=== PATIENT | female | born 1990 | race Hispanic/Latino ===

== ENCOUNTER 2021-06-02 04:23 | Emergency (ER) | payer OTHER ==
--- OUTSIDE RECORDS SUMMARY | 2021-06-02 04:26 | XMS REPORT | Continuity of Care Document ---
:1990 Author Organization [facility] t Address [address] [place] [address] [address]. [address] [place] [address] Care Team Providers Name Role Phone Pcp, Does Not Have A Primary Care Physician Mina TRIPP, T Attending Clinician Unavailable Lamberto GARCIA Attending Clinician Unknown Attending Clinician Unavailable UNKNOWN Attending Clinician Unavailable Payers Payer Name Policy Type Policy Number Effective Date Expiration Date Mejia sevilla [facility] [id number] 2020 00:00:00 CHOICE/CHOICE PLUS Problems Condition Condition Condition Status Onset Resolution Last Treating Co mments Source Name Details Category Date Date Treatment Clinician Date No known No known Disease Unive rs active active ity of problems problems [facility] Allergies, Adverse Reactions, Alerts Allergy Allergy Status Severity Reaction(s) Onset Inactive Treating Comm ents Source Name Type Date Date Clinician NO KNOWN Drug Active [facility] Social [facility] Social Habit Start Date Stop Date Quantity Comments Source Exposure to Not sure [facility] SARS-CoV-2 [facility] (event) [place] Alcohol intake 2020-10-06 2020-10-06 Ex-drinker [facility] 00:00:00 00:00:00 (finding) [facility] Tobacco use and 2020-10-06 2020-10-06 Never used Universit y of exposure 00:00:00 00:00:00 [facility] Sex Ass[birth year] At [birth year] Universit y of 00:00:00 00:00:00 [facility] Smoking Status Start Date Stop Date Source Never smoker [facility] Medications Ordered Filled Start Stop Current Ordering Indication Dosage Frequency Signature Comments Components Source Medication Medication Date Date Medication? Clinician (SIG) Name Name No known No Univers medications ity [facility] No known No [facility] No [facility] No [facility] medications [facility] Vital Signs Vital Name Observation Time Observation Value Comments Source Systolic blood 2020-10-06 18:04:00 120 mm[Hg] Univer sity of [facility] Diastolic blood 2020-10-06 18:04:00 80 mm[Hg] Unive rsity of [facility] Heart rate 2020-10-06 18:04:00 88 /min Universi ty of [facility] Body temperature 2020-10-06 18:04:00 [facility].67 [facility] Respiratory rate 2020-10-06 18:04:00 18 /min [facility] Oxygen saturation in 2020-10-06 18:04:00 98 /min [facility] Arterial blood by [facility] Pulse oximetry [place] Procedures This patient has no known procedures. Encounters Start End Encounter Admission Attending Care Care Encounter Source Date/Time Date/Time Type Type Clinicians Facility Department ID 2021-01-28 Outpatient [facility] [id number] [place] 11:36:50 Health 2020-10-08 2020-10-08 Letter IVIS Enriquez [id number] Univers 00:00:00 00:00:00 (Out) Flakita LYNNE [id number] [facility] [id number] Mohit as [id number] [place] [id number] [place] 2020-10-06 2020-10-06 Urgent Keyona Orantes [facility] [id number] Univers 11:42:02 12:02:02 Care Unknown, [id number] Mohit as Robert?Blea [id number] Dc gavinal [address] [facility] 2020-10-06 2020-10-06 Outpatient R UNKNOWN, [facility] [id number] Univers 11:40:00 11:40:00 ATTENDING [facility] Results This patient has no known results.
[2021-06-02 05:26] LABS: Lymphocytes % 32.2 % (15.3-44.8); MPV 7.9 fL (7.6-11.3); RBC Red Blood Cell Count 4.27 M/uL (3.86-4.86)
[2021-06-02 05:47] LABS: Potassium 3.7 mmol/L (3.5-5.1)
--- NOTE | 2021-06-02 08:22 | ER ---
Nurse's Notes [facility] Name: Bruna Elaine Age: 31 yrs Sex: Female : 1990 Arrival Date: 06/02/2021 Time: 04:30 Bed 4 Private MD: Diagnosis: Chest pain on breathing Presentation: 06/02 05:04 Chief complaint: Patient states: she has been having on and off chest pain since sm5 yesterday morning. Coronavirus screen: Vaccine status: Patient reports receiving the 2nd dose of the covid vaccine. Ebola Screen: No symptoms or risks identified at this time. Initial Sepsis Screen: Does the patient meet any 2 criteria? No. Patient's initial sepsis screen is negative. Does the patient have a suspected source of infection? No. Patient's initial sepsis screen is negative. Risk Assessment: Do you want to hurt yourself or someone else? Patient reports no desire to harm self or others. Onset of symptoms was June 01, 2021. 05:04 Method Of Arrival: Ambulatory [facility] 05:04 Acuity: LAEX 3 5 Triage Assessment: 05:06 General: Appears in no apparent distress. Behavior is cooperative. Pain: Complains of 5 pain in chest Quality of pain is described as sharp. Neuro: No deficits noted. Level of Consciousness is awake, alert, obeys commands, Oriented to person, place, time, situation. Cardiovascular: Reports chest pain, Capillary refill < 3 seconds Patient's skin is warm and dry. Respiratory: No deficits noted. Airway is patent Trachea midline Respiratory effort is even, unlabored. 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 - Social history:: Smoking status: Patient denies any tobacco usage or history of. Patient uses Patient/guardian denies using alcohol, street drugs, The patient lives with spouse. - Family history:: not pertinent. Screenin:06 Abuse screen: Denies threats or abuse. Denies injuries from another. Nutritional sm5 screening: No deficits noted. Tuberculosis screening: No symptoms or risk factors identified. Fall Risk None identified. Assessment: 06:22 Pain: Pain does not radiate. Pain began 4 hours ago. kd3 06:22 General: Appears in no apparent distress. Behavior is calm, cooperative, appropriate kd3 for age. Neuro: Level of Consciousness is awake, alert, obeys commands, Oriented to person, place, time, situation. Cardiovascular: Patient's skin is warm and dry. Respiratory: Airway is patent Respiratory effort is even, unlabored, Respiratory pattern is regular. 07:12 General: Appears in no apparent distress. comfortable, Behavior is calm, cooperative. vg1 Pain: Denies pain. Neuro: Level of Consciousness is awake, alert, obeys commands, Oriented to person, place, time, situation. Cardiovascular: Patient's skin is warm and dry. Respiratory: Airway is patent Respiratory effort is even, unlabored. GI: No signs and/or symptoms were reported involving the gastrointestinal system. : No signs and/or symptoms were reported regarding the genitourinary system. EENT: No signs and/or symptoms were reported regarding the EENT system. Derm: Skin is intact, Skin is pink, warm \T\ dry. Musculoskeletal: Circulation, motion, and sensation intact. 08:20 Reassessment: Patient appears in no apparent distress at this time. No changes from vg1 previously documented assessment. Patient and/or family updated on plan of care and expected duration. Pain level reassessed. Patient is alert, oriented x 3, equal unlabored respirations, skin warm/dry/pink. Vital Signs: 05:04 BP 120 / 76; Pulse 71; Resp 17; Temp 98.8(O); Pulse Ox 99% on R/A; Weight 63.5 kg; sm5 Height 5 ft. 0 in. (152.40 cm); 06:29 BP 111 / 75; Pulse 74; Resp 18; Pulse Ox 96% on R/A; sm5 07:13 BP 98 / 66; Pulse 73; Resp 16; Pulse Ox 98% on R/A; vg1 08:20 BP 101 / 66; Pulse 78; Resp 16; Pulse Ox 98% on R/A; vg1 05:04 Body Mass Index 27.34 (63.50 kg, 152.40 cm) [facility] ED Course: 04:30 Patient arrived in ED. kz 04:59 Antoine Deras MD is Attending Physician. kdr 05:05 Triage completed. sm5 05:06 Arm band placed on right wrist. EKG completed in triage. Results shown to MD. sm5 05:06 Patient has correct armband on for positive identification. Placed in gown. Bed in low sm5 position. Call light in reach. Side rails up X2. 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 Pulse ox on. NIBP on. 05:07 Carole Herbert, RN is Primary Nurse. kd3 05:23 Inserted saline lock: 20 gauge in right antecubital area, using aseptic technique. kd3 Blood collected. 06:00 XRAY Chest (1 view) In Process Unspecified. EDMS 06:23 Patient maintains SpO2 saturation greater than 95% on room air. kd3 07:35 Repeat lab(s) drawn. by me. vg1 08:01 Attending Physician role handed off by Antoine Deras MD ma2 08:01 Jose Vega MD is Attending Physician. ma2 08:41 No provider procedures requiring assistance completed. IV discontinued, intact, ap3 bleeding controlled, No redness/swelling at site. Pressure dressing applied. Administered Medications: No medications were administered Outcome: 08:21 Discharge ordered by . ma2 08:41 Discharged to home ambulatory. ap3 08:41 Condition: good 08:41 Discharge instructions given to patient, Instructed on discharge instructions, follow up and referral plans. medication usage, Demonstrated understanding of instructions, follow-up care, medications, Prescriptions given X 1. 08:41 Patient left the ED. ap3 Signatures: Dispatcher [employer] EDFL Antoine Deras MD MD [facility] Jose Vega MD MD ma2 Prokisch, Amanda RN RN ap3 Salima Perea RN JOSEE [email or web address] Carole Herbert, RN JOSEE kd3 Susan De Los Santos, RN RN Meagan Horn
--- NOTE | 2021-06-02 08:22 | EDPHYS ---
Physician Documentation [facility] Name: Bruna Elaine Age: 31 yrs Sex: Female : 1990 Arrival Date: 06/02/2021 Time: 04:30 Bed 4 Private MD: ED Physician Jose Vega HPI: 06/02 08:19 This 31 yrs old Female presents to ER via Ambulatory with complaints of Chest ma2 Pain. 08:19 Healthy 32-year-old female never had any heart or lung issues neurotomies, presents ma2 with right-sided lateral chest wall pain that is worse when she took the breath or twist to the side, patient states she had similar pain pain in the past has been constant for 2 days, is worse when she touch tender area. 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 - Social history:: Smoking status: Patient denies any tobacco usage or history of. Patient uses Patient/guardian denies using alcohol, street drugs, The patient lives with spouse. - Family history:: not pertinent. ROS: 08:19 Constitutional: Negative for fever, chills, and weight loss. ma2 08:19 All other systems are negative. Exam: 05:37 ECG was reviewed by the Attending Physician. kdr 08:19 Constitutional: This is a well developed, well nourished patient who is awake, alert, ma2 and in no acute distress. Head/Face: Normocephalic, atraumatic. Eyes: Pupils equal round and reactive to light, extra-ocular motions intact. Lids and lashes normal. Conjunctiva and sclera are non-icteric and not injected. Cornea within normal limits. Periorbital areas with no swelling, redness, or edema. ENT: Nares patent. No nasal discharge, no septal abnormalities noted. Tympanic membranes are normal and external auditory canals are clear. Oropharynx with no redness, swelling, or masses, exudates, or evidence of obstruction, uvula midline. Mucous membranes moist. Neck: Trachea midline, no thyromegaly or masses palpated, and no cervical lymphadenopathy. Supple, full range of motion without nuchal rigidity, or vertebral point tenderness. No Meningismus. Chest/axilla: Chest pain reproducible on exam, normal chest wall appearance and motion. Nontender with no deformity. No lesions are appreciated. Cardiovascular: Regular rate and rhythm with a normal S1 and S2. No gallops, murmurs, or rubs. Normal PMI, no JVD. No pulse deficits. Respiratory: Lungs have equal breath sounds bilaterally, clear to auscultation and percussion. No rales, rhonchi or wheezes noted. No increased work of breathing, no retractions or nasal flaring. Abdomen/GI: Soft, non-tender, with normal bowel sounds. No distension or tympany. No guarding or rebound. No evidence of tenderness throughout. Skin: Warm, dry with normal turgor. Normal color with no rashes, no lesions, and no evidence of cellulitis. MS/ Extremity: Pulses equal, no cyanosis. Neurovascular intact. Full, normal range of motion. Neuro: Awake and alert, GCS 15, oriented to person, place, time, and situation. Cranial nerves II-XII grossly intact. Motor strength 5/5 in all extremities. Sensory grossly intact. Cerebellar exam normal. Normal gait. Vital Signs: 05:04 BP 120 / 76; Pulse 71; Resp 17; Temp 98.8(O); Pulse Ox 99% on R/A; Weight 63.5 kg; sm5 Height 5 ft. 0 in. (152.40 cm); 06:29 BP 111 / 75; Pulse 74; Resp 18; Pulse Ox 96% on R/A; sm5 07:13 BP 98 / 66; Pulse 73; Resp 16; Pulse Ox 98% on R/A; vg1 08:20 BP 101 / 66; Pulse 78; Resp 16; Pulse Ox 98% on R/A; vg1 05:04 Body Mass Index 27.34 (63.50 kg, 152.40 cm) [facility] MDM: 08:19 Differential diagnosis: chest wall pain, esophagitis, gastritis, gastroesophageal ma2 reflux disease (GERD). Data reviewed: vital signs, nurses notes, EKG, radiologic studies. Counseling: I had a detailed discussion with the patient and/or guardian regarding: the historical points, exam findings, and any diagnostic results supporting the discharge/admit diagnosis, the presence of at least one elevated blood pressure reading (>120/80) during this emergency department visit, the need for outpatient follow up. ED course: Received signout from Dr. Deras on this patient as last chest pain discharged home after second troponin, all results came back normal symptoms resolved, second troponin came back negative, patient has no symptoms at this time would like to go home. 08:21 Patient medically screened. ma2 06/02 05:00 Order name: Basic Metabolic Panel; Complete Time: 06:22 kdr 06/02 05:00 Order name: CBC with Diff; Complete Time: 05:43 kdr 06/02 05:00 Order name: Troponin HS; Complete Time: 06:22 kdr 06/02 05:00 Order name: XRAY Chest (1 view) kdr 06/02 06:22 Order name: Troponin High Sensitivity: Draw 2 hours after initial draw; Complete Time: kdr 08:06/02 05:00 Order name: Cardiac monitoring; Complete Time: 05:15 kdr 06/02 05:00 Order name: EKG - Nurse/Tech; Complete Time: 05:12 kdr 06/02 05:00 Order name: IV Saline Lock; Complete Time: 05:15 kdr 06/02 05:00 Order name: Labs collected and sent; Complete Time: 05:23 kdr 06/02 05:00 Order name: O2 Per Protocol; Complete Time: 05:12 kdr 06/02 05:00 Order name: O2 Sat Monitoring; Complete Time: 05:12 kdr EC:37 Rate is 73 beats/min. Rhythm is regular, Sinus Rhythm with No ectopy. QRS [place] is kdr Normal. MT interval is normal. QRS interval is normal. QT interval is normal. Clinical impression: NSR w/ Non-specific ST/T Changes. Administered Medications: No medications were administered Disposition Summary: 06/02/21 08:21 Discharge Ordered Location: Home ma2 Condition: Stable ma2 Diagnosis - Chest pain on breathing ma2 Followup: ma2 - With: Private Physician - When: Tomorrow - Reason: If symptoms return, Continuance of care Discharge Instructions: - Discharge Summary Sheet ma2 - Chest Wall Pain ma2 Forms: - Medication Reconciliation Form ma2 - Thank You Letter ma2 - Antibiotic Education ma2 - Prescription Opioid Use ma2 Prescriptions: - Diclofenac Sodium 75 mg Oral Tablet Sustained Release - take 1 tablet by ORAL route 2 times per day; 30 tablet; Refills: 0, Product ma2 Selection Permitted Signatures: Dispatcher [employer] Antoine Pittman MD MD [facility] Jose Vega MD MD ma2 Susan De Los Santos, RN RN sm5 Gale Hoffmann PA PA sb3
[2021-06-02 08:46] VITALS: TEMP 98.8
[2021-06-02 08:49] VITALS: O2SAT 98
[2021-06-02 08:50] VITALS: BP 101/66
--- NOTE | 2021-06-02 18:09 | RAD REPORT ---
EXAM DESCRIPTION: RAD - Chest Single View - 06/02/2021 5:58 am XR Chest, 1 View CLINICAL HISTORY: The patient is 31 years old and is Female; CHEST PAIN TECHNIQUE: Frontal view of the chest. COMPARISON: No relevant prior studies available. FINDINGS: Lungs: Unremarkable. No consolidation. Pleural space: Unremarkable. No pneumothorax. Heart: Unremarkable. Mediastinum: Lucency along the right heart border which likely represents artifact. Bones/joints: Unremarkable. IMPRESSION: No acute findings in the chest. Electronically signed by: Bryant Leigh MD 06/02/2021 6:21 AM CDT Due to temporary technical issues with the PACS/Fluency reporting system, reports are being signed by the in house radiologists without review as a courtesy to insure prompt reporting. The interpreting radiologist is fully responsible for the content of the report.
--- NOTE | 2021-06-04 09:37 | EKG ---
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
== END 2021-06-02 08:41 | disposition home or self-care (01) ==
LOC: ER 04:23
DX: R07.1 Chest pain on breathing (principal)
CPT/HCPCS: 36415; 71045; 80048; 84484; 85025; 93005; 99285